=== PATIENT | female | born 1940 | race Caucasian/White ===

== ENCOUNTER 2017-09-23 13:23 | Inpatient (IN) ==
[2017-09-23] MEDS ORDERED: SODIUM CHLORIDE 0.9% 1,000 ML IV STA (13:56)
[2017-09-23 14:52] LABS: Basophils % 0.3 % (0.0-0.8); Eosinophils # 0.1 10*3/uL (0.0-0.87); Eosinophils % 0.6 % (0.00-10.9); Hematocrit 36.6 VOL% (35.7-47.0); Immature Granulocytes % 0.3 %; Immature Granulocytes Absolute 0.03 #; Lymphocytes # 0.7 10*3/uL (1.4-4.0); Lymphocytes % 7.4 % (21.3-54.2); Mean Corpuscular HGB Conc 32.8 GM/DL (32-36); Mean Corpuscular Hemoglobin 30 PG (27-34); Mean Corpuscular Volume 92.2 FL (87-102); Mean Platelet Volume 12.3 FL (9.6-12.0); Monocytes # 0.4 10*3/uL (0.11-0.8); Neutrophils # 7.6 10*3/uL (1.4-7.4); Neutrophils % 86.4 % (38.7-73.9); Platelet Count 153 T/CUMM (130-400); Red Blood Count 3.97 MC/CUMM (3.8-5.5); Red Cell Distribution Width 12.8 % (9.3-17.3); White Blood Count 8.8 T/CUMM (4-12)
[2017-09-23 15:03] LABS: INR 0.9; PT Patient Result 9.4 SECS; Partial Thromboplastin Time < 21.0 SECS (0-40)
[2017-09-23 15:12] LABS: Alanine Aminotransferase 22 U/L (13-56); Albumin 3.7 G/DL (3.4-5.0); Alkaline Phosphatase 80 U/L (45-117); Aspartate Amino Transferase 9 U/L (0-37); Bilirubin,Total < 0.39 MG/DL (0.2-1.0); Blood Urea Nitrogen 49 MG/DL (7-18); Calcium 8.3 MG/DL (8.5-10.1); Glucose 83 MG/DL (74-106); Magnesium 2.1 MG/DL (1.8-2.4); Osmolality,Calculated 281.1 MOS/KG (273-304); Potassium 3.9 MMOL/L (3.5-5.1); Sodium 135 MMOL/L (136-145); Total Protein 6.9 G/DL (6.4-8.3); Troponin I Only < 0.015 NG/ML (0.00-0.045)
[2017-09-23 15:26] LABS: Apearance,Urine Slightly Hazy (Clear); Bacteria,Urine Many /HPF (Few); Barbiturates Screen,Urine Negative (Negative); Benzodiazepines Screen,Urine Negative (Negative); Bilirubin,Urine Negative (Negative); Blood, Urine Small mg/dL (Negative); Cannabinoid Screen,Urine Negative (Negative); Glucose,Urine (UA) Negative (Negative); Ketones,Urine Negative (Negative); Nitrite,Urine Positive (Negative); Opiate Screen,Urine Positive (Negative); Phencyclidine Screen,Urine Negative (Negative); Protein,Urine Negative; RBC,Urine 3 /HPF (0-4); Urine Color Yellow (Yellow); Urine Specific Gravity 1.006 (1.001-1.035); Urine Urobilinogen < 2.0 EU/DL (0.2-1.0); WBC,Urine 14 /HPF (0-6)
[2017-09-23 15:43] LABS: Free T4 (Free Thyroxine) 1.11 NG/DL (0.76-1.46); Thyroid Stimulating Hormone 0.289 uIU/ml (0.358-3.74)
[2017-09-23] MEDS ORDERED: ONDANSETRON 4 MG/2 ML VIAL IV PRN (15:59)
[2017-09-23] MEDS: SODIUM CHLORIDE 0.9% 1,000 ML IV SCH (19:13)
[2017-09-23] MEDS: LEVOFLOXACIN INJ 250 MG in PREMIX 1 EACH IV SCH (21:32)
[2017-09-23] MEDS: ENOXAPARIN 30 MG/0.3 ML SYRINGE SUBCUT SCH (21:36)
[2017-09-24 03:15] LABS: Basophils # 0.1 10*3/uL (0.0-0.2); Basophils % 0.6 % (0.0-0.8); Eosinophils # 0.1 10*3/uL (0.0-0.87); Eosinophils % 1.1 % (0.00-10.9); Hematocrit 33.1 VOL% (35.7-47.0); Hemoglobin 10.6 GM/DL (12.0-16.0); Immature Granulocytes % 0.5 %; Immature Granulocytes Absolute 0.04 #; Lymphocytes # 0.6 10*3/uL (1.4-4.0); Lymphocytes % 6.9 % (21.3-54.2); Mean Corpuscular Hemoglobin 30 PG (27-34); Mean Corpuscular Volume 92.2 FL (87-102); Mean Platelet Volume 12.2 FL (9.6-12.0); Monocytes # 0.5 10*3/uL (0.11-0.8); Monocytes % 5.1 % (1.7-12.7); Neutrophils # 7.5 10*3/uL (1.4-7.4); Neutrophils % 85.8 % (38.7-73.9); Platelet Count 159 T/CUMM (130-400); Red Blood Count 3.59 MC/CUMM (3.8-5.5); Red Cell Distribution Width 12.8 % (9.3-17.3); White Blood Count 8.8 T/CUMM (4-12)
[2017-09-24 03:42] LABS: Albumin 3.1 G/DL (3.4-5.0); Bilirubin,Total 0.6 MG/DL (0.2-1.0); Calcium 7.3 MG/DL (8.5-10.1); Magnesium 1.8 MG/DL (1.8-2.4); Osmolality,Calculated 290.8 MOS/KG (273-304); Potassium 3.9 MMOL/L (3.5-5.1)
[2017-09-24] MEDS: SODIUM CHLORIDE 0.9% 1,000 ML IV SCH ×2 (03:50→11:47)
[2017-09-24] MEDS ORDERED: MAGNESIUM SULF RIDER 2 GM in PREMIX 1 EACH IV ONE (12:11)
[2017-09-24] MEDS ORDERED: traMADol 50 MG TABLET PO PRN (16:19)
[2017-09-24] MEDS: LEVOFLOXACIN INJ 250 MG in PREMIX 1 EACH IV SCH (21:25)
[2017-09-24] MEDS: ENOXAPARIN 30 MG/0.3 ML SYRINGE SUBCUT SCH (21:28)
[2017-09-24] MEDS: GABAPENTIN 300 MG CAPSULE PO SCH (21:28)
[2017-09-25] MEDS: SODIUM CHLORIDE 0.9% 1,000 ML IV SCH ×3 (00:46→10:05)
[2017-09-25 04:47] LABS: Osmolality,Calculated 282.3 MOS/KG (273-304)
[2017-09-25] MEDS ORDERED: LEVOFLOXACIN INJ 250 MG in PREMIX 1 EACH IV ONE (07:30)
[2017-09-25] MEDS: GABAPENTIN 300 MG CAPSULE PO SCH (08:02)
[2017-09-25] MEDS ORDERED: amLODIPine 2.5 MG TABLET PO SCH (09:00)
[2017-09-25] MEDS ORDERED: MELOXICAM 7.5 MG TABLET PO SCH (09:00)
[2017-09-25] MEDS ORDERED: VERAPAMIL SR 180 MG TABLET PO SCH (09:00)
[2017-09-25] MEDS ORDERED: ATENOLOL 25 MG TABLET PO SCH (09:00)
[2017-09-25] MEDS ORDERED: FAMOTIDINE 20 MG TABLET PO SCH (09:00)
[2017-09-25 11:58] VITALS: BP 113/64
== END 2017-09-25 12:14 | disposition home or self-care (01) | DRG 682 ==
LOC: EDBD → EDUNIT# → N.ED 13:23 → N.EDINP 15:53 → N.2E 18:51
PROVIDERS: ADMIT Family Medicine; ATTEND Family Medicine

== ENCOUNTER 2018-12-06 19:34 | Inpatient (IN) ==
[2018-12-06 20:35] LABS: Basophils % 0.2 % (0.0-0.8); Hematocrit 35.4 VOL% (35.7-47.0); Hemoglobin 10.3 GM/DL (12.0-16.0); Immature Granulocytes Absolute 0.18 #; Lymphocytes # 0.5 10*3/uL (1.4-4.0); Lymphocytes % 2.7 % (21.3-54.2); Mean Corpuscular HGB Conc 29.1 GM/DL (32-36); Mean Corpuscular Hemoglobin 29 PG (27-34); Mean Corpuscular Volume 100.3 FL (87-102); Mean Platelet Volume 13.7 FL (9.6-12.0); Monocytes # 1.3 10*3/uL (0.11-0.8); Monocytes % 7.5 % (1.7-12.7); NRBC # 0.05 10*3/uL; Neutrophils # 15.5 10*3/uL (1.4-7.4); Neutrophils % 88.6 % (38.7-73.9); Red Blood Count 3.53 MC/CUMM (3.8-5.5); Red Cell Distribution Width 14.6 % (9.3-17.3); White Blood Count 17.5 T/CUMM (4-12)
[2018-12-06 20:38] LABS: INR 3.2; Partial Thromboplastin Time 31.5 SECS (0-40)
[2018-12-06 20:42] LABS: Platelet Count 33 T/CUMM (130-400)
[2018-12-06 20:44] LABS: PT Patient Result 34.1 SECS
[2018-12-06] MEDS ORDERED: ALBUTEROL/IPRATROPIUM 3 ML NEB RESP TX STA (21:12)
[2018-12-06] MEDS ORDERED: FUROSEMIDE 100 MG/10 ML VIAL IV STA (21:12)
[2018-12-06 21:29] LABS: Lymphocytes 6 % (20-55); Platelet Estimate Decreased; Segmented Neutrophils 90 % (50-85); Total Cells Counted 100
[2018-12-06 21:30] LABS: Hypochromasia Slight; Macrocytosis Slight
[2018-12-06] MEDS ORDERED: FUROSEMIDE 40 MG/4 ML VIAL ONE (21:48)
[2018-12-06] MEDS ORDERED: DEXTROSE 50% 25 GM/50 ML VIAL IV ONE ×2 (22:30→22:53)
[2018-12-06 22:36] LABS: Bilirubin,Total 2.5 MG/DL (0.2-1.0); Calcium 6.8 MG/DL (8.5-10.1); Osmolality,Calculated 270.8 MOS/KG (273-304); Total Protein 7.4 G/DL (6.4-8.3)
[2018-12-06 22:41] LABS: Potassium 6.9 MMOL/L (3.5-5.1)
[2018-12-06] MEDS ORDERED: GLUCOSE GEL 15 GM TUBE PO ONE (22:42)
[2018-12-06] MEDS ORDERED: DEXTROSE 50% 25 GM/50 ML SYRINGE IV ONE (22:53)
[2018-12-06 23:08] LABS: Basophils % 0.2 % (0.0-0.8); Hematocrit 35.3 VOL% (35.7-47.0); Hemoglobin 10.2 GM/DL (12.0-16.0); Immature Granulocytes % 0.7 %; Immature Granulocytes Absolute 0.12 #; Lymphocytes # 0.5 10*3/uL (1.4-4.0); Mean Corpuscular HGB Conc 28.9 GM/DL (32-36); Mean Corpuscular Hemoglobin 29 PG (27-34); Mean Corpuscular Volume 99.7 FL (87-102); Mean Platelet Volume 12.5 FL (9.6-12.0); Monocytes # 0.9 10*3/uL (0.11-0.8); Monocytes % 5.3 % (1.7-12.7); NRBC # 0.08 10*3/uL; Neutrophils # 15.5 10*3/uL (1.4-7.4); Neutrophils % 90.8 % (38.7-73.9); Red Blood Count 3.54 MC/CUMM (3.8-5.5); Red Cell Distribution Width 14.5 % (9.3-17.3); White Blood Count 17.1 T/CUMM (4-12)
[2018-12-06 23:16] LABS: Platelet Count 32 T/CUMM (130-400)
[2018-12-06] MEDS ORDERED: CALCIUM CHLORIDE 1,000 MG in SODIUM CHLORIDE 0.9% 100 ML IV ONE (23:21)
[2018-12-06] MEDS ORDERED: SODIUM POLYSTYRENE SULFATE 15 GM/60 ML BOTTLE PO STA (23:22)
[2018-12-06 23:24] LABS: INR 3.3
[2018-12-06 23:25] LABS: PT Patient Result 35.5 SECS
[2018-12-06] MEDS ORDERED: CALCIUM CHLORIDE 1,000 MG/10 ML SYRINGE IV ONE (23:25)
[2018-12-06 23:53] LABS: ABG Base Excess -11.7 MMOL/L (-2.5-2.5); ABG HCO3 15.2 MMOL/L (20-26); ABG Oxygen Saturation 98.6 % (95-100); ABG PCO2 24.5 MM HG (35-48); ABG PH 7.332 (7.35-7.45); ABG TCO2 11.9 MMOL/L (23-27); Allen Test Positive
[2018-12-07] MEDS ORDERED: ALBUTEROL 2.5 MG/3 ML NEB RESP TX PRN (00:13)
[2018-12-07] MEDS ORDERED: ZALEPLON 5 MG CAPSULE PO PRN (00:13)
[2018-12-07 00:15] LABS: Apearance,Urine CLOUDY (Clear); Bilirubin,Urine Negative (Negative); Blood, Urine Moderate mg/dL (Negative); Glucose,Urine (UA) Negative (Negative); Hyaline Casts,Urine 6 /LPF (0-3); Ketones,Urine 5 mg/dL (Negative); Mucus,Urine Occasional /LPF (Occasional); Nitrite,Urine Negative (Negative); Protein,Urine 100 MG/DL; Squamous Epithelial Cell,Urine Occasional /HPF (0-10); Urine Color Amber (Yellow); Urine Specific Gravity 1.018 (1.001-1.035); Urine Urobilinogen < 2.0 EU/DL (0.2-1.0); WBC,Urine 5 /HPF (0-6)
[2018-12-07 00:17] LABS: Lymphocytes 3 % (20-55); Nucleated Red Blood Cells 1 (0-5); Platelet Estimate Decreased; Segmented Neutrophils 94 % (50-85); Total Cells Counted 100
[2018-12-07 00:18] LABS: Anisocytosis 1+; Bilirubin,Total 2.1 MG/DL (0.2-1.0); CKMB % 2.9 %; Calcium 6.3 MG/DL (8.5-10.1); Macrocytosis 1+; Osmolality,Calculated 272.8 MOS/KG (273-304); Polychromasia Few; Total Protein 7.3 G/DL (6.4-8.3)
[2018-12-07 00:21] LABS: Potassium 6.7 MMOL/L (3.5-5.1); Troponin I 1.54 NG/ML (0.00-0.045)
[2018-12-07] MEDS ORDERED: GLUCAGON 1 MG VIAL IM PRN (00:23)
[2018-12-07] MEDS ORDERED: DEXTROSE 10% 1,000 ML IV SCH ×2 (00:30)
[2018-12-07] MEDS ORDERED: DEXTROSE 5% NACL 0.45% 1,000 ML IV SCH (01:34)
[2018-12-07 07:04] LABS: Basophils % 0.1 % (0.0-0.8); Hemoglobin 8.5 GM/DL (12.0-16.0); Immature Granulocytes % 0.7 %; Immature Granulocytes Absolute 0.09 #; Lymphocytes # 0.5 10*3/uL (1.4-4.0); Lymphocytes % 4.4 % (21.3-54.2); Mean Corpuscular HGB Conc 29.3 GM/DL (32-36); Mean Corpuscular Hemoglobin 29 PG (27-34); Mean Platelet Volume 13.6 FL (9.6-12.0); Monocytes # 0.4 10*3/uL (0.11-0.8); Monocytes % 3.4 % (1.7-12.7); NRBC # 0.07 10*3/uL; Neutrophils # 11.2 10*3/uL (1.4-7.4); Neutrophils % 91.4 % (38.7-73.9); Red Blood Count 2.96 MC/CUMM (3.8-5.5); Red Cell Distribution Width 14.3 % (9.3-17.3); White Blood Count 12.3 T/CUMM (4-12)
[2018-12-07 07:09] LABS: Platelet Count 29 T/CUMM (130-400)
[2018-12-07 07:18] LABS: INR 3.6
[2018-12-07 07:28] LABS: Hypochromasia 1+; Lymphocytes 3 % (20-55); Ovalocytes Slight; Platelet Estimate Decreased; Segmented Neutrophils 94 % (50-85); Total Cells Counted 100
[2018-12-07 07:41] LABS: Albumin 3.4 G/DL (3.4-5.0); Bilirubin,Total 1.7 MG/DL (0.2-1.0); Osmolality,Calculated 283.7 MOS/KG (273-304); Potassium 5.4 MMOL/L (3.5-5.1); Total Protein 6.2 G/DL (6.4-8.3)
[2018-12-07] MEDS: LACTULOSE 20 GM/30 ML UDCUP PO SCH ×2 (09:07→22:11)
[2018-12-07] MEDS: SODIUM BICARB INJ 100 MEQ in DEXTROSE 5% 1,000 ML IV SCH ×5 (09:07→17:00)
[2018-12-07 09:39] LABS: Gamma Glutamyl Transpeptidase 169 U/L (5-85)
[2018-12-07 10:37] LABS: Carcinoembryonic Antigen 2.2 NG/ML (0.0-5.0); Hepatitis A Ab IgM Quant 0.15 Index; Hepatitis A Ab IgM Result Negative (Negative); Hepatitis B Core IgM Quant 0.12 Index; Hepatitis B Core IgM Result Negative (Negative); Hepatitis B Surface Ag Quant < 0.10 Index; Hepatitis B Surface Ag Result Negative (Negative); Hepatitis C Virus Ab Quant < 0.02 Index; Hepatitis C Virus Ab Result Negative (Negative)
[2018-12-07] MEDS ORDERED: SODIUM BICARB INJ 150 MEQ in DEXTROSE 5% 1,000 ML IV SCH (13:00)
[2018-12-08] MEDS: SODIUM BICARB INJ 100 MEQ in DEXTROSE 5% 1,000 ML IV SCH ×3 (01:11→20:02)
[2018-12-08 06:35] LABS: Basophils % 0.1 % (0.0-0.8); Eosinophils # 0.2 10*3/uL (0.0-0.87); Eosinophils % 2.3 % (0.00-10.9); Hematocrit 29.3 VOL% (35.7-47.0); Hemoglobin 9.2 GM/DL (12.0-16.0); Immature Granulocytes % 1.2 %; Immature Granulocytes Absolute 0.09 #; Lymphocytes % 12.2 % (21.3-54.2); Mean Corpuscular HGB Conc 31.4 GM/DL (32-36); Mean Corpuscular Hemoglobin 29 PG (27-34); Mean Corpuscular Volume 91.6 FL (87-102); Mean Platelet Volume 12.2 FL (9.6-12.0); Monocytes # 0.2 10*3/uL (0.11-0.8); Monocytes % 2.3 % (1.7-12.7); NRBC # 0.07 10*3/uL; Neutrophils # 6.4 10*3/uL (1.4-7.4); Neutrophils % 81.9 % (38.7-73.9)
[2018-12-08 06:38] LABS: Platelet Count 43 T/CUMM (130-400); White Blood Count 7.8 T/CUMM (4-12)
[2018-12-08 07:42] LABS: Hypochromasia 2+
[2018-12-08 07:43] LABS: Anisocytosis 1+; Macrocytosis Slight; Microcytosis Slight; Platelet Estimate Decreased; Polychromasia Few
[2018-12-08 07:51] LABS: Total Protein (Chem) 6.6 G/DL (6.4-8.3)
[2018-12-08 08:42] LABS: Albumin 2.7 G/DL (3.4-5.0); Calcium 6.1 MG/DL (8.5-10.1); Osmolality,Calculated 282.5 MOS/KG (273-304); Potassium 3.7 MMOL/L (3.5-5.1); Total Protein 5.5 G/DL (6.4-8.3)
[2018-12-08 08:51] LABS: INR 2.5
[2018-12-08 08:57] LABS: PT Patient Result 27.2 SECS
[2018-12-08] MEDS: LACTULOSE 20 GM/30 ML UDCUP PO SCH ×2 (09:33→20:47)
[2018-12-08] MEDS: DEXTROSE 5% NACL 0.45% 1,000 ML IV SCH ×2 (09:36→22:18)
[2018-12-08 09:51] LABS: Albumin (SPE) 3.9 G/DL (3.2-5.3); Albumin (SPE) Rel % 60.2 %; Alpha 1 (SPE) 0.3 G/DL (0.1-0.4); Alpha 1 (SPE) Rel % 4.1 %; Alpha 2 (SPE) 0.7 G/DL (0.4-1.0); Alpha 2 (SPE) Rel % 9.8 %; Beta (SPE) 0.6 G/DL (0.5-1.1); Beta (SPE) Rel % 9.7 %; Gamma (SPE) 1.1 G/DL (0.7-1.7); Gamma (SPE) Rel % 16.2 %
[2018-12-09 05:25] LABS: Basophils % 0.6 % (0.0-0.8); Eosinophils # 0.3 10*3/uL (0.0-0.87); Eosinophils % 5.2 % (0.00-10.9); Hematocrit 28.6 VOL% (35.7-47.0); Hemoglobin 9.3 GM/DL (12.0-16.0); Immature Granulocytes % 0.6 %; Immature Granulocytes Absolute 0.03 #; Lymphocytes # 0.7 10*3/uL (1.4-4.0); Lymphocytes % 14.8 % (21.3-54.2); Mean Corpuscular HGB Conc 32.5 GM/DL (32-36); Mean Corpuscular Hemoglobin 29 PG (27-34); Mean Corpuscular Volume 90.5 FL (87-102); Mean Platelet Volume 12.4 FL (9.6-12.0); Monocytes # 0.5 10*3/uL (0.11-0.8); Neutrophils # 3.3 10*3/uL (1.4-7.4); Neutrophils % 68.8 % (38.7-73.9); Platelet Count 52 T/CUMM (130-400); Red Blood Count 3.16 MC/CUMM (3.8-5.5); Red Cell Distribution Width 14.1 % (9.3-17.3); White Blood Count 4.8 T/CUMM (4-12)
[2018-12-09 05:53] LABS: Albumin 2.6 G/DL (3.4-5.0); Bilirubin,Total 2.5 MG/DL (0.2-1.0); Calcium 7.4 MG/DL (8.5-10.1); Potassium 3.3 MMOL/L (3.5-5.1); Total Protein 5.5 G/DL (6.4-8.3)
[2018-12-09 06:34] LABS: Anisocytosis Slight
[2018-12-09 06:35] LABS: Microcytosis Slight
[2018-12-09 06:37] LABS: Stomatocytes Slight; Target Cells Slight
[2018-12-09 06:38] LABS: Platelet Estimate Decreased
[2018-12-09] MEDS: LACTULOSE 20 GM/30 ML UDCUP PO SCH ×2 (09:40→20:25)
[2018-12-09] MEDS: POTASSIUM CHLORIDE 20 MEQ TABLET PO SCH ×2 (18:55→20:25)
[2018-12-09] MEDS: DEXTROSE 5% NACL 0.45% 1,000 ML IV SCH (18:56)
[2018-12-09] MEDS ORDERED: oxyCODONE IR 5 MG TABLET PO ONE (22:19)
[2018-12-10 04:54] LABS: Basophils % 0.4 % (0.0-0.8); Eosinophils # 0.3 10*3/uL (0.0-0.87); Eosinophils % 5.3 % (0.00-10.9); Hematocrit 30.5 VOL% (35.7-47.0); Hemoglobin 9.6 GM/DL (12.0-16.0); Immature Granulocytes % 0.2 %; Immature Granulocytes Absolute 0.01 #; Lymphocytes % 21.2 % (21.3-54.2); Mean Corpuscular HGB Conc 31.5 GM/DL (32-36); Mean Corpuscular Hemoglobin 29 PG (27-34); Mean Corpuscular Volume 90.8 FL (87-102); Mean Platelet Volume 11.2 FL (9.6-12.0); Monocytes # 0.7 10*3/uL (0.11-0.8); Neutrophils # 2.7 10*3/uL (1.4-7.4); Neutrophils % 57.9 % (38.7-73.9); Platelet Count 74 T/CUMM (130-400); Red Blood Count 3.36 MC/CUMM (3.8-5.5); Red Cell Distribution Width 14.5 % (9.3-17.3); White Blood Count 4.7 T/CUMM (4-12)
[2018-12-10 05:35] LABS: Albumin 2.7 G/DL (3.4-5.0); Bilirubin,Total 2.4 MG/DL (0.2-1.0); Calcium 7.6 MG/DL (8.5-10.1); Osmolality,Calculated 280.8 MOS/KG (273-304); Potassium 3.9 MMOL/L (3.5-5.1); Total Protein 5.7 G/DL (6.4-8.3)
[2018-12-10] MEDS: LACTULOSE 20 GM/30 ML UDCUP PO SCH ×2 (10:01→20:28)
[2018-12-10] MEDS: DEXTROSE 5% NACL 0.45% 1,000 ML IV SCH ×2 (10:01→22:49)
[2018-12-10] MEDS: POTASSIUM CHLORIDE 20 MEQ TABLET PO SCH (10:01)
[2018-12-10] MEDS: traMADol 50 MG TABLET PO PRN (22:44)
[2018-12-10] MEDS: VERAPAMIL SR 180 MG TABLET PO SCH (22:45)
[2018-12-10] MEDS: ATENOLOL 25 MG TABLET PO SCH (22:45)
[2018-12-11] MEDS ORDERED: ZINC OXIDE PASTE 113 GM TUBE TOP PRN (03:22)
[2018-12-11] MEDS ORDERED: SODIUM CHLORIDE 0.9% 1,000 ML IV ONE (05:05)
[2018-12-11] MEDS ORDERED: NOREPINEPHRINE 4 MG/4 ML VIAL IV ONE (05:24)
[2018-12-11] MEDS: NOREPINEPHRINE 8 MG in SODIUM CHLORIDE 0.9% 242 ML IV PRN ×2 (05:43→20:03)
[2018-12-11] MEDS: ONDANSETRON 4 MG/2 ML VIAL IV PRN ×2 (05:55→20:04)
[2018-12-11] MEDS: DEXTROSE 5% NACL 0.45% 1,000 ML IV SCH ×2 (06:30→19:09)
[2018-12-11 06:40] LABS: Basophils # 0.1 10*3/uL (0.0-0.2); Basophils % 0.7 % (0.0-0.8); Eosinophils # 0.4 10*3/uL (0.0-0.87); Eosinophils % 3.8 % (0.00-10.9); Hemoglobin 11.1 GM/DL (12.0-16.0); Immature Granulocytes % 3.3 %; Immature Granulocytes Absolute 0.38 #; Lymphocytes # 1.7 10*3/uL (1.4-4.0); Lymphocytes % 14.2 % (21.3-54.2); Mean Corpuscular Hemoglobin 29 PG (27-34); Mean Corpuscular Volume 98.1 FL (87-102); Mean Platelet Volume 10.9 FL (9.6-12.0); Monocytes # 2.4 10*3/uL (0.11-0.8); Monocytes % 20.8 % (1.7-12.7); Neutrophils # 6.7 10*3/uL (1.4-7.4); Neutrophils % 57.2 % (38.7-73.9); Red Blood Count 3.77 MC/CUMM (3.8-5.5); Red Cell Distribution Width 14.9 % (9.3-17.3); White Blood Count 11.7 T/CUMM (4-12)
[2018-12-11 06:49] LABS: Platelet Count 36 T/CUMM (130-400)
[2018-12-11 07:48] LABS: Band Neutrophils 1 % (0-10); Eosinophils 3 % (0-10); Lymphocytes 15 % (20-55); Segmented Neutrophils 66 % (50-85); Total Cells Counted 100
[2018-12-11 07:49] LABS: Hypochromasia 1+; Ovalocytes Slight; Platelet Estimate Decreased
[2018-12-11 07:50] LABS: Microcytosis Slight
[2018-12-11 08:30] LABS: Albumin 2.1 G/DL (3.4-5.0); Bilirubin,Total 1.9 MG/DL (0.2-1.0); Calcium 7.2 MG/DL (8.5-10.1); Osmolality,Calculated 265.1 MOS/KG (273-304); Potassium 4.7 MMOL/L (3.5-5.1)
[2018-12-11] MEDS: VERAPAMIL SR 180 MG TABLET PO SCH (09:00)
[2018-12-11] MEDS: LACTULOSE 20 GM/30 ML UDCUP PO SCH ×2 (09:00→20:14)
[2018-12-11] MEDS: ATENOLOL 25 MG TABLET PO SCH (09:00)
[2018-12-11] MEDS: VERAPAMIL 80 MG TABLET PO SCH ×2 (11:10→20:14)
[2018-12-11] MEDS: traMADol 50 MG TABLET PO PRN (16:50)
[2018-12-11] MEDS: ALUM/MAG/SIMETH/LIDO VISC 1:1 30 ML BOTTLE PO PRN (20:03)
[2018-12-11] MEDS: FAMOTIDINE 20 MG TABLET PO SCH (20:14)
[2018-12-12] MEDS: NOREPINEPHRINE 8 MG in SODIUM CHLORIDE 0.9% 242 ML IV PRN ×2 (04:04→11:50)
[2018-12-12 05:04] LABS: Basophils % 0.2 % (0.0-0.8); Eosinophils % 0.2 % (0.00-10.9); Hematocrit 33.7 VOL% (35.7-47.0); Hemoglobin 9.8 GM/DL (12.0-16.0); Immature Granulocytes % 1.1 %; Immature Granulocytes Absolute 0.18 #; Lymphocytes # 1.3 10*3/uL (1.4-4.0); Lymphocytes % 7.8 % (21.3-54.2); Mean Corpuscular HGB Conc 29.1 GM/DL (32-36); Mean Corpuscular Hemoglobin 29 PG (27-34); Mean Corpuscular Volume 100.6 FL (87-102); Mean Platelet Volume 12.4 FL (9.6-12.0); Monocytes # 3.7 10*3/uL (0.11-0.8); Monocytes % 22.1 % (1.7-12.7); NRBC # 0.04 10*3/uL; Neutrophils # 11.3 10*3/uL (1.4-7.4); Neutrophils % 68.6 % (38.7-73.9); Platelet Count 60 T/CUMM (130-400); Red Blood Count 3.35 MC/CUMM (3.8-5.5); Red Cell Distribution Width 15.4 % (9.3-17.3); White Blood Count 16.5 T/CUMM (4-12)
[2018-12-12 07:05] LABS: Band Neutrophils 1 % (0-10); Eosinophils 1 % (0-10); Hypochromasia 1+; Lymphocytes 9 % (20-55); Microcytosis Slight; Ovalocytes Slight; Platelet Estimate Decreased; Segmented Neutrophils 74 % (50-85); Total Cells Counted 100
[2018-12-12 07:33] LABS: Albumin 3.1 G/DL (3.4-5.0); Bilirubin,Total 2.5 MG/DL (0.2-1.0); Calcium 6.9 MG/DL (8.5-10.1); Osmolality,Calculated 267.1 MOS/KG (273-304); Potassium 5.1 MMOL/L (3.5-5.1); Total Protein 6.4 G/DL (6.4-8.3)
[2018-12-12] MEDS ORDERED: SODIUM BICARB INJ 50 MEQ in DEXTROSE 5% NACL 0.45% 1,000 ML IV SCH (08:16)
[2018-12-12] MEDS: DEXTROSE 5% NACL 0.45% 1,000 ML IV SCH (08:20)
[2018-12-12] MEDS: VERAPAMIL 80 MG TABLET PO SCH ×3 (09:00→21:17)
[2018-12-12] MEDS: FAMOTIDINE 20 MG TABLET PO SCH (09:40)
[2018-12-12] MEDS: LACTULOSE 20 GM/30 ML UDCUP PO SCH ×2 (09:40→21:18)
[2018-12-12] MEDS: ALUM/MAG/SIMETH/LIDO VISC 1:1 30 ML BOTTLE PO PRN ×2 (09:50→21:18)
[2018-12-12] MEDS: traMADol 50 MG TABLET PO PRN (11:30)
[2018-12-12] MEDS ORDERED: DIGOXIN 0.5 MG/2 ML AMP IV ONE (11:38)
[2018-12-12] MEDS: SODIUM BICARBONATE 50 MEQ/50 ML VIAL IV SCH ×2 (17:15→22:51)
[2018-12-12] MEDS: DEXTROSE 50% 25 GM/50 ML SYRINGE IV PRN (20:40)
[2018-12-13] MEDS: NOREPINEPHRINE 8 MG in SODIUM CHLORIDE 0.9% 242 ML IV PRN (00:22)
[2018-12-13] MEDS: SODIUM BICARBONATE 50 MEQ/50 ML VIAL IV SCH ×2 (04:16→11:22)
[2018-12-13 04:40] LABS: Basophils % 0.2 % (0.0-0.8); Eosinophils % 0.1 % (0.00-10.9); Hematocrit 26.6 VOL% (35.7-47.0); Hemoglobin 8.2 GM/DL (12.0-16.0); Immature Granulocytes % 0.6 %; Immature Granulocytes Absolute 0.06 #; Lymphocytes # 0.7 10*3/uL (1.4-4.0); Lymphocytes % 7.1 % (21.3-54.2); Mean Corpuscular HGB Conc 30.8 GM/DL (32-36); Mean Corpuscular Hemoglobin 29 PG (27-34); Mean Platelet Volume 11.8 FL (9.6-12.0); Monocytes # 0.9 10*3/uL (0.11-0.8); Monocytes % 9.1 % (1.7-12.7); Neutrophils # 8.1 10*3/uL (1.4-7.4); Neutrophils % 82.9 % (38.7-73.9); Platelet Count 52 T/CUMM (130-400); Red Blood Count 2.86 MC/CUMM (3.8-5.5); Red Cell Distribution Width 14.8 % (9.3-17.3); White Blood Count 9.8 T/CUMM (4-12)
[2018-12-13] MEDS: DEXTROSE 50% 25 GM/50 ML SYRINGE IV PRN (05:27)
[2018-12-13 06:10] LABS: Anisocytosis 1+; Hypochromasia 1+; Platelet Estimate Decreased
[2018-12-13] MEDS: LACTULOSE 20 GM/30 ML UDCUP PO SCH ×2 (09:43→21:43)
[2018-12-13] MEDS: VERAPAMIL 80 MG TABLET PO SCH ×2 (09:43→21:43)
[2018-12-13] MEDS: FAMOTIDINE 20 MG TABLET PO SCH (09:43)
[2018-12-13] MEDS: DIGOXIN 0.25 MG TABLET PO SCH ×2 (09:43→12:10)
[2018-12-13] MEDS ORDERED: diphenhydrAMINE CAP 25 MG CAPSULE PO PRN (10:35)
[2018-12-13] MEDS ORDERED: SODIUM BICARBONATE 50 MEQ/50 ML VIAL IV ONE (11:16)
[2018-12-14 05:19] LABS: Calcium 7.7 MG/DL (8.5-10.1); Osmolality,Calculated 284.8 MOS/KG (273-304)
[2018-12-14 05:37] LABS: Basophils % 0.1 % (0.0-0.8); Eosinophils # 0.1 10*3/uL (0.0-0.87); Eosinophils % 1.7 % (0.00-10.9); Hematocrit 26.8 VOL% (35.7-47.0); Hemoglobin 8.4 GM/DL (12.0-16.0); Immature Granulocytes % 0.4 %; Immature Granulocytes Absolute 0.03 #; Lymphocytes # 0.6 10*3/uL (1.4-4.0); Lymphocytes % 8.3 % (21.3-54.2); Mean Corpuscular HGB Conc 31.3 GM/DL (32-36); Mean Corpuscular Hemoglobin 29 PG (27-34); Mean Corpuscular Volume 91.2 FL (87-102); Mean Platelet Volume 12.6 FL (9.6-12.0); Monocytes # 0.8 10*3/uL (0.11-0.8); Monocytes % 11.8 % (1.7-12.7); Neutrophils # 5.3 10*3/uL (1.4-7.4); Neutrophils % 77.7 % (38.7-73.9); Platelet Count 60 T/CUMM (130-400); Red Blood Count 2.94 MC/CUMM (3.8-5.5); Red Cell Distribution Width 14.7 % (9.3-17.3); White Blood Count 6.9 T/CUMM (4-12)
[2018-12-14] MEDS: VERAPAMIL 80 MG TABLET PO SCH ×2 (09:45→21:09)
[2018-12-14] MEDS: LACTULOSE 20 GM/30 ML UDCUP PO SCH ×2 (09:46→21:09)
[2018-12-14] MEDS: FAMOTIDINE 20 MG TABLET PO SCH (09:46)
[2018-12-14] MEDS: DIGOXIN 0.25 MG TABLET PO SCH (12:53)
[2018-12-14] MEDS ORDERED: NIFEdipine 10 MG CAPSULE PO PRN (16:25)
[2018-12-15 04:47] LABS: Albumin 2.7 G/DL (3.4-5.0); Bilirubin,Total 3.8 MG/DL (0.2-1.0); Calcium 7.8 MG/DL (8.5-10.1); Osmolality,Calculated 284.5 MOS/KG (273-304); Potassium 3.9 MMOL/L (3.5-5.1); Total Protein 5.7 G/DL (6.4-8.3)
[2018-12-15] MEDS: ATENOLOL 25 MG TABLET PO SCH (08:30)
[2018-12-15] MEDS: LACTULOSE 20 GM/30 ML UDCUP PO SCH ×2 (08:30→21:58)
[2018-12-15] MEDS: VERAPAMIL 80 MG TABLET PO SCH ×2 (08:30→21:57)
[2018-12-15] MEDS: FAMOTIDINE 20 MG TABLET PO SCH (08:30)
[2018-12-15] MEDS: DIGOXIN 0.25 MG TABLET PO SCH (12:37)
[2018-12-15 16:12] LABS: INR 1.3; PT Patient Result 14.3 SECS
[2018-12-16 06:14] LABS: Basophils % 0.3 % (0.0-0.8); Eosinophils % 0.6 % (0.00-10.9); Hematocrit 25.4 VOL% (35.7-47.0); Immature Granulocytes % 0.4 %; Immature Granulocytes Absolute 0.03 #; Lymphocytes # 0.9 10*3/uL (1.4-4.0); Lymphocytes % 12.7 % (21.3-54.2); Mean Corpuscular HGB Conc 31.5 GM/DL (32-36); Mean Corpuscular Hemoglobin 29 PG (27-34); Mean Platelet Volume 12.2 FL (9.6-12.0); Monocytes # 0.9 10*3/uL (0.11-0.8); Monocytes % 12.4 % (1.7-12.7); Neutrophils # 5.1 10*3/uL (1.4-7.4); Neutrophils % 73.6 % (38.7-73.9); Red Blood Count 2.76 MC/CUMM (3.8-5.5); Red Cell Distribution Width 15.4 % (9.3-17.3); White Blood Count 6.9 T/CUMM (4-12)
[2018-12-16 06:15] LABS: Platelet Count 86 T/CUMM (130-400)
[2018-12-16 06:35] LABS: Albumin 2.6 G/DL (3.4-5.0); Bilirubin,Total 3.4 MG/DL (0.2-1.0); Calcium 7.7 MG/DL (8.5-10.1); Osmolality,Calculated 280.5 MOS/KG (273-304); Potassium 3.7 MMOL/L (3.5-5.1); Total Protein 5.5 G/DL (6.4-8.3)
[2018-12-16 06:52] LABS: Hypochromasia 2+; Platelet Estimate Decreased
[2018-12-16] MEDS: FAMOTIDINE 20 MG TABLET PO SCH (08:45)
[2018-12-16] MEDS: VERAPAMIL 80 MG TABLET PO SCH ×2 (08:45→21:42)
[2018-12-16] MEDS: ATENOLOL 25 MG TABLET PO SCH (08:45)
[2018-12-16] MEDS: LACTULOSE 20 GM/30 ML UDCUP PO SCH ×2 (08:45→21:42)
[2018-12-16] MEDS: DIGOXIN 0.25 MG TABLET PO SCH (12:42)
[2018-12-17 05:46] LABS: Basophils % 0.5 % (0.0-0.8); Eosinophils # 0.1 10*3/uL (0.0-0.87); Eosinophils % 1.6 % (0.00-10.9); Hematocrit 25.8 VOL% (35.7-47.0); Hemoglobin 7.8 GM/DL (12.0-16.0); Immature Granulocytes % 0.3 %; Immature Granulocytes Absolute 0.02 #; Lymphocytes # 1.1 10*3/uL (1.4-4.0); Lymphocytes % 17.7 % (21.3-54.2); Mean Corpuscular HGB Conc 30.2 GM/DL (32-36); Mean Corpuscular Hemoglobin 28 PG (27-34); Mean Corpuscular Volume 92.5 FL (87-102); Monocytes # 0.8 10*3/uL (0.11-0.8); Monocytes % 13.2 % (1.7-12.7); Neutrophils # 4.2 10*3/uL (1.4-7.4); Neutrophils % 66.7 % (38.7-73.9); Platelet Count 101 T/CUMM (130-400); Red Blood Count 2.79 MC/CUMM (3.8-5.5); Red Cell Distribution Width 15.5 % (9.3-17.3); White Blood Count 6.2 T/CUMM (4-12)
[2018-12-17 06:09] LABS: Albumin 2.7 G/DL (3.4-5.0); Bilirubin,Total 2.6 MG/DL (0.2-1.0); Calcium 7.2 MG/DL (8.5-10.1); Osmolality,Calculated 275.7 MOS/KG (273-304); Potassium 3.9 MMOL/L (3.5-5.1); Total Protein 5.7 G/DL (6.4-8.3)
[2018-12-17] MEDS: VERAPAMIL 80 MG TABLET PO SCH (08:55)
[2018-12-17] MEDS: ATENOLOL 25 MG TABLET PO SCH (08:55)
[2018-12-17] MEDS: LACTULOSE 20 GM/30 ML UDCUP PO SCH (08:55)
[2018-12-17] MEDS: FAMOTIDINE 20 MG TABLET PO SCH (08:55)
[2018-12-17] MEDS: DIGOXIN 0.25 MG TABLET PO SCH (13:38)
[2018-12-17 16:38] VITALS: BP 167/80
== END 2018-12-17 18:13 | disposition home health service (06) | DRG 682 ==
LOC: N.ED 19:34 → SUATTDRO 22:56 → N.EDINP 22:56 → N.2E 23:09 → N.CC 12-07 00:39 → N.2E 12-09 18:32 → N.ICU 12-11 05:13 → N.2E 12-14 12:38
PROVIDERS: ADMIT Hospitalist; ATTEND Internal Medicine Infectious Disease

== ENCOUNTER 2019-01-06 10:47 | Inpatient (IN) ==
[2019-01-06] MEDS ORDERED: SODIUM CHLORIDE 0.9% 2,000 ML IV STA (11:15)
[2019-01-06] MEDS ORDERED: cefTRIAXone 1,000 MG in SODIUM CHLORIDE 0.9% 100 ML IV STA (11:15)
[2019-01-06] MEDS ORDERED: DOPamine 800 MG/250 ML PREMIX IV SCH (11:30)
[2019-01-06 11:46] LABS: Apearance,Urine CLOUDY (Clear); Bacteria,Urine Many /HPF (Few); Bilirubin,Urine Negative (Negative); Blood, Urine Small mg/dL (Negative); Glucose,Urine (UA) Negative (Negative); Ketones,Urine Negative (Negative); Mucus,Urine Few /LPF (Occasional); Nitrite,Urine Negative (Negative); Protein,Urine 100 MG/DL; RBC,Urine 23 /HPF (0-4); Squamous Epithelial Cell,Urine Moderate /HPF (0-10); WBC,Urine 81 /HPF (0-6)
[2019-01-06 11:47] LABS: Urine Color Dark Yellow (Yellow)
[2019-01-06] MEDS ORDERED: SODIUM CHLORIDE 0.9% 1,000 ML IV STA (13:00)
[2019-01-06 13:09] LABS: Basophils % 0.3 % (0.0-0.8); Eosinophils % 0.2 % (0.00-10.9); Hematocrit 30.3 VOL% (35.7-47.0); Hemoglobin 8.9 GM/DL (12.0-16.0); Immature Granulocytes % 7.5 %; Lymphocytes # 1.4 10*3/uL (1.4-4.0); Lymphocytes % 15.1 % (21.3-54.2); Mean Corpuscular HGB Conc 29.4 GM/DL (32-36); Mean Corpuscular Volume 96.8 FL (87-102); Mean Platelet Volume 12.2 FL (9.6-12.0); Monocytes % 5.2 % (1.7-12.7); Neutrophils % 71.7 % (38.7-73.9); Platelet Count 154 T/CUMM (130-400); Red Blood Count 3.13 MC/CUMM (3.8-5.5); Red Cell Distribution Width 17.7 % (9.3-17.3); White Blood Count 9.3 T/CUMM (4-12)
[2019-01-06 13:14] LABS: INR 1.2; PT Patient Result 12.8 SECS
[2019-01-06 13:16] LABS: Alanine Aminotransferase 21 U/L (13-56); Albumin 2.2 G/DL (3.4-5.0); Alkaline Phosphatase 82 U/L (45-117); Amylase 42 U/L (25-115); Aspartate Amino Transferase 37 U/L (0-37); Blood Urea Nitrogen 34 MG/DL (7-18); Calcium 6.9 MG/DL (8.5-10.1); Glucose 115 MG/DL (74-106); Osmolality,Calculated 281.8 MOS/KG (273-304); Total Protein 5.4 G/DL (6.4-8.3)
[2019-01-06 13:34] LABS: Anisocytosis 1+; Band Neutrophils 27 % (0-10); Eosinophils 1 % (0-10); Lymphocytes 14 % (20-55); Myelocytes 3 %; Platelet Estimate Normal; Polychromasia Slight; Segmented Neutrophils 53 % (50-85); Target Cells Few; Total Cells Counted 100
[2019-01-06] MEDS: SODIUM CHLORIDE 0.9% 1,000 ML IV SCH ×2 (13:40→22:39)
[2019-01-06] MEDS ORDERED: NOREPINEPHRINE 8 MG in SODIUM CHLORIDE 0.9% 242 ML IV PRN (16:28)
[2019-01-06] MEDS ORDERED: ALBUTEROL/IPRATROPIUM 3 ML NEB RESP TX PRN (16:33)
[2019-01-06] MEDS ORDERED: SODIUM POLYSTYRENE SULFATE 15 GM/60 ML BOTTLE PO ONE (16:38)
[2019-01-06] MEDS ORDERED: SODIUM CHLORIDE 0.9% 1,000 ML IV SCH (17:00)
[2019-01-06] MEDS: PIPERACILLIN/TAZOBACTAM 2,250 MG in SODIUM CHLORIDE 0.9% 100 ML IV SCH (17:45)
[2019-01-06] MEDS: PANTOPRAZOLE 40 MG VIAL IV SCH (18:16)
[2019-01-06] MEDS: HEPARIN 5,000 UNIT/1 ML VIAL SUBCUT SCH (18:16)
[2019-01-07] MEDS: HEPARIN 5,000 UNIT/1 ML VIAL SUBCUT SCH ×3 (01:52→17:09)
[2019-01-07 05:01] LABS: Basophils % 0.3 % (0.0-0.8); Eosinophils % 0.1 % (0.00-10.9); Hematocrit 27.6 VOL% (35.7-47.0); Hemoglobin 8.3 GM/DL (12.0-16.0); Immature Granulocytes % 0.9 %; Immature Granulocytes Absolute 0.08 #; Lymphocytes # 1.3 10*3/uL (1.4-4.0); Lymphocytes % 15.1 % (21.3-54.2); Mean Corpuscular HGB Conc 30.1 GM/DL (32-36); Mean Corpuscular Volume 95.2 FL (87-102); Mean Platelet Volume 11.9 FL (9.6-12.0); Monocytes % 7.8 % (1.7-12.7); Neutrophils % 75.8 % (38.7-73.9); Platelet Count 174 T/CUMM (130-400); Red Cell Distribution Width 17.3 % (9.3-17.3); White Blood Count 8.8 T/CUMM (4-12)
[2019-01-07 05:11] LABS: Albumin 2.5 G/DL (3.4-5.0); Bilirubin,Total 0.6 MG/DL (0.2-1.0); Calcium 6.9 MG/DL (8.5-10.1); Osmolality,Calculated 285.5 MOS/KG (273-304); Total Protein 6.2 G/DL (6.4-8.3)
[2019-01-07] MEDS: PIPERACILLIN/TAZOBACTAM 2,250 MG in SODIUM CHLORIDE 0.9% 100 ML IV SCH ×2 (06:04→17:09)
[2019-01-07] MEDS: PANTOPRAZOLE 40 MG VIAL IV SCH (08:32)
[2019-01-07] MEDS: SODIUM CHLORIDE 0.9% 1,000 ML IV SCH (08:33)
[2019-01-07] MEDS: ASPIRIN 325 MG TABLET PO SCH (11:40)
[2019-01-07] MEDS ORDERED: SODIUM CHLORIDE 0.9% 250 ML IV PRN (13:07)
[2019-01-07] MEDS: SODIUM BICARBONATE 650 MG TABLET PO SCH ×2 (15:19→20:04)
[2019-01-08] MEDS: HEPARIN 5,000 UNIT/1 ML VIAL SUBCUT SCH ×3 (00:14→17:07)
[2019-01-08] MEDS ORDERED: ACETAMINOPHEN 325 MG TABLET PO PRN (01:05)
[2019-01-08] MEDS: PIPERACILLIN/TAZOBACTAM 2,250 MG in SODIUM CHLORIDE 0.9% 100 ML IV SCH (05:49)
[2019-01-08] MEDS ORDERED: ALBUTEROL 2.5 MG/3 ML NEB RESP TX PRN (08:01)
[2019-01-08] MEDS: traMADol 50 MG TABLET PO PRN ×2 (08:45→21:26)
[2019-01-08] MEDS: ATENOLOL 25 MG TABLET PO SCH (08:45)
[2019-01-08] MEDS: ASPIRIN 325 MG TABLET PO SCH (08:46)
[2019-01-08] MEDS: SODIUM BICARBONATE 650 MG TABLET PO SCH (08:46)
[2019-01-08] MEDS: PANTOPRAZOLE 40 MG VIAL IV SCH (08:47)
[2019-01-08] MEDS ORDERED: FUROSEMIDE 100 MG/10 ML VIAL IV ONE (10:11)
[2019-01-08] MEDS: cefTRIAXone 1,000 MG in SYRINGE 1 EACH IV SCH (17:07)
[2019-01-08] MEDS: ROSUVASTATIN 10 MG TABLET PO SCH (21:26)
[2019-01-09] MEDS: HEPARIN 5,000 UNIT/1 ML VIAL SUBCUT SCH ×3 (00:49→16:54)
[2019-01-09] MEDS ORDERED: diphenhydrAMINE CAP 50 MG CAPSULE PO ONE (03:13)
[2019-01-09] MEDS ORDERED: diphenhydrAMINE CAP 50 MG CAPSULE ONE (03:17)
[2019-01-09 03:46] LABS: ABG Base Excess -2.6 MMOL/L (-2.5-2.5); ABG HCO3 22.2 MMOL/L (20-26); ABG Oxygen Saturation 96.6 % (95-100); ABG PCO2 40.8 MM HG (35-48); ABG PH 7.355 (7.35-7.45); ABG PO2 87.5 MM HG (80-95); ABG TCO2 20.8 MMOL/L (23-27); Allen Test Positive
[2019-01-09] MEDS: traMADol 50 MG TABLET PO PRN ×2 (04:44→21:03)
[2019-01-09 07:08] LABS: Basophils # 0.1 10*3/uL (0.0-0.2); Basophils % 0.8 % (0.0-0.8); Eosinophils # 0.2 10*3/uL (0.0-0.87); Eosinophils % 1.9 % (0.00-10.9); Hematocrit 28.3 VOL% (35.7-47.0); Hemoglobin 8.5 GM/DL (12.0-16.0); Immature Granulocytes % 0.3 %; Immature Granulocytes Absolute 0.03 #; Lymphocytes # 1.8 10*3/uL (1.4-4.0); Lymphocytes % 20.7 % (21.3-54.2); Mean Corpuscular Volume 94.3 FL (87-102); Mean Platelet Volume 11.7 FL (9.6-12.0); Monocytes % 8.3 % (1.7-12.7); Platelet Count 203 T/CUMM (130-400); Red Cell Distribution Width 17.5 % (9.3-17.3); White Blood Count 8.9 T/CUMM (4-12)
[2019-01-09 07:24] LABS: Calcium 7.7 MG/DL (8.5-10.1); Osmolality,Calculated 279.5 MOS/KG (273-304)
[2019-01-09 07:28] LABS: Risk Ratio 2.38; VLDL CHOLESTEROL 21.8 MG/DL
[2019-01-09] MEDS: PANTOPRAZOLE 40 MG TABLET PO SCH (08:26)
[2019-01-09] MEDS: ASPIRIN 325 MG TABLET PO SCH (08:27)
[2019-01-09] MEDS: ATENOLOL 25 MG TABLET PO SCH (08:27)
[2019-01-09] MEDS ORDERED: MAGNESIUM SULF RIDER 2 GM in PREMIX 1 EACH IV PRN (10:20)
[2019-01-09] MEDS ORDERED: MAGNESIUM SULF RIDER 4 GM in PREMIX 1 EACH IV PRN (10:20)
[2019-01-09] MEDS: POTASSIUM CHLORIDE 20 MEQ TABLET PO PRN ×3 (10:44→14:30)
[2019-01-09] MEDS ORDERED: ATENOLOL 25 MG TABLET PO ONE (13:37)
[2019-01-09] MEDS ORDERED: POTASSIUM CHLORIDE 10 MEQ TABLET PO ONE (14:18)
[2019-01-09] MEDS ORDERED: MAGNESIUM SULF RIDER 2 GM in PREMIX 1 EACH IV ONE (14:22)
[2019-01-09] MEDS: cefTRIAXone 1,000 MG in SYRINGE 1 EACH IV SCH (16:54)
[2019-01-09] MEDS: ROSUVASTATIN 10 MG TABLET PO SCH (21:00)
[2019-01-10] MEDS: HEPARIN 5,000 UNIT/1 ML VIAL SUBCUT SCH ×2 (03:12→08:38)
[2019-01-10 05:19] LABS: Basophils # 0.1 10*3/uL (0.0-0.2); Basophils % 0.9 % (0.0-0.8); Eosinophils # 0.1 10*3/uL (0.0-0.87); Hematocrit 28.4 VOL% (35.7-47.0); Hemoglobin 8.4 GM/DL (12.0-16.0); Immature Granulocytes % 0.9 %; Immature Granulocytes Absolute 0.08 #; Lymphocytes % 22.5 % (21.3-54.2); Mean Corpuscular HGB Conc 29.6 GM/DL (32-36); Mean Corpuscular Volume 96.3 FL (87-102); Mean Platelet Volume 11.4 FL (9.6-12.0); Monocytes % 6.9 % (1.7-12.7); Neutrophils % 67.8 % (38.7-73.9); Platelet Count 201 T/CUMM (130-400); Red Blood Count 2.95 MC/CUMM (3.8-5.5); Red Cell Distribution Width 17.2 % (9.3-17.3); White Blood Count 8.8 T/CUMM (4-12)
[2019-01-10 05:46] LABS: Calcium 8.4 MG/DL (8.5-10.1); Osmolality,Calculated 277.5 MOS/KG (273-304)
[2019-01-10] MEDS: ASPIRIN 325 MG TABLET PO SCH (08:38)
[2019-01-10] MEDS: PANTOPRAZOLE 40 MG TABLET PO SCH (08:38)
[2019-01-10] MEDS ORDERED: IRON SUCROSE 300 MG in SODIUM CHLORIDE 0.9% 100 ML IV ONE (09:00)
[2019-01-10] MEDS ORDERED: ATENOLOL 50 MG TABLET PO SCH (09:00)
[2019-01-10 11:32] VITALS: BP 137/78
== END 2019-01-10 15:20 | disposition home health service (06) | DRG 871 ==
LOC: EDBD → EDUNIT# → N.ED 10:47 → N.EDINP 15:59 → SUATTDRO 15:59 → N.ICU 17:12 → N.4E 01-08 14:13
PROVIDERS: ADMIT Internal Medicine; ATTEND Internal Medicine